=== PATIENT | male | born 1965 | race Two or more races ===

== ENCOUNTER 2023-05-27 11:17 | Emergency (ER) | payer MEDICAID ==
[~2023-05-27] VITALS: Ht 182.9 cm; Wt 69.7 kg
[2023-05-27] MEDS ORDERED: ACETAMINOPHEN 500 MG TAB PO ONE (12:45)
[2023-05-27 13:17] VITALS: RESP 18; O2SAT 99
[2023-05-27] MEDS ORDERED: SODIUM CHLORIDE 0.9% 500 ML IV ONE (13:45)
[2023-05-27 14:09] LABS: Basophils # (auto) 0 10 ^3/uL (0-0.2); Basophils % (auto) 0.4 % (0.0-2.0); Eosinophils # (auto) 0.1 10 ^3/uL (0-0.8); Eosinophils % (auto) 1.5 % (0.0-7.0); Hematocrit 45.2 % (41.0-53.0); Hemoglobin 15.3 g/dL (13.5-17.5); Lymphocytes # (auto) 0.4 10 ^3/uL (0.4-5.4); Lymphocytes % (auto) 10.3 % (10.0-50.0); Mean Corpuscular Hemoglobin 30.8 pg (28.0-32.0); Mean Corpuscular Hgb Conc. 33.8 g/dL (32.0-36.0); Mean Corpuscular Volume 91.1 fL (80.0-100.0); Monocytes # (auto) 0.6 10 ^3/uL (0-1.3); Monocytes % (auto) 16.3 % (0.0-12.0); Neutrophils # (auto) 2.6 10 ^3/uL (1.6-8.6); Neutrophils % (auto) 71.5 % (37.0-80.0); Red Blood Cells 4.96 10^6/uL (4.5-5.90); Red Cell Distribution Width 13.6 % (11.8-14.3); White Blood Cell 3.7 10^3/uL (4.4-10.8)
[2023-05-27 14:25] LABS: Rapid Influenza A Negative (Negative); Rapid Influenza B Negative (Negative)
[2023-05-27 14:26] LABS: COVID19 ANTIGEN SOFIA FIA NEGATIVE (NEGATIVE)
[2023-05-27 14:32] LABS: Alanine Aminotransferase 20 U/L (7-40); Albumin 4.7 g/dL (3.2-4.8); Alkaline Phosphatase 99 U/L (46-116); Anion Gap 9 (5-15); Aspartate Aminotransferase 18 U/L (13-40); BUN/Creatinine Ratio 11.5 (10.0-20.0); Blood Urea Nitrogen 12 mg/dL (9-23); Calcium 9.4 mg/dL (8.5-10.1); Carbon Dioxide 23 mmol/L (20-30); Chloride 105 mmol/L (98-107); Glucose 76 mg/dL (74-106); Potassium 3.8 mmol/L (3.5-5.1); Sodium 137 mmol/L (136-145)
[2023-05-27 14:33] LABS: Bilirubin, Total 0.4 mg/dL (0.2-1.0); Total Protein 7.5 g/dL (5.7-8.2)
[2023-05-27 15:09] VITALS: BP 113/70; PULSE 61; RESP 14; TEMP 97.3; O2SAT 97
[2023-05-27] MEDS ORDERED: AZIT-81 PO (15:13)
[2023-05-27] MEDS ORDERED: PROM1SOL4 PO (15:14)
== END 2023-05-27 15:14 | disposition home or self-care (01) ==
LOC: ER 11:17
DX: J06.9 Acute upper respiratory infection, unspecified (principal); F17.210 Nicotine dependence, cigarettes, uncomplicated; R07.89 Other chest pain; Z20.822 Contact with and (suspected) exposure to COVID-19
CPT/HCPCS: 36415; 71045; 80053; 83605; 85025; 87426; 87804; 99284; J7030

== ENCOUNTER 2023-07-03 19:03 | Emergency (ER) | payer MEDICAID ==
[~2023-07-03] VITALS: Ht 182.9 cm; Wt 77.2 kg
[~2023-07-03 19:03] MED LIST: AZIT-81 PO; PROM1SOL4 PO
[2023-07-03 19:27] VITALS: BP 101/62; PULSE 72; RESP 18; O2SAT 97
[2023-07-03 20:06] LABS: COVID19 ANTIGEN SOFIA FIA NEGATIVE (NEGATIVE)
[2023-07-03 20:07] LABS: Rapid Influenza A Negative (Negative); Rapid Influenza B Negative (Negative)
== END 2023-07-03 23:58 | disposition home or self-care (01) ==
LOC: ER 19:03
DX: R51.9 Headache, unspecified (principal); R09.81 Nasal congestion; Z53.21 Procedure and treatment not carried out due to patient leaving prior to being seen by health care provider; Z20.822 Contact with and (suspected) exposure to COVID-19
CPT/HCPCS: 36415; 87426; 87804

== ENCOUNTER 2025-02-27 00:28 | Emergency (ER) | payer MEDICAID, OTHER ==
[~2025-02-27] VITALS: Ht 182.9 cm; Wt 75.0 kg
[~2025-02-27 00:28] MED LIST changes: +AZIT-185 PO; -AZIT-81 PO
--- NOTE | 2025-02-27 01:32 | DVH ---
CLINICAL INDICATION: stepped on metal injury TECHNIQUE: 3-view XY L FOOT 3 VIEW XRAY Comparison: None FINDINGS: Oblique, mildly displaced fracture of the 5th metatarsal diaphysis. Overlying soft tissue swelling. No joint malalignment or other acute fracture. Mild chronic deformities of the 3rd and 4th middle pha lanxes, possibly developmental. Small mineralization in the 1st intermetatarsal space is likely vascu lar. IMPRESSION: 1. Oblique mildly displaced left 5th metatarsal fracture.
[2025-02-27] MEDS ORDERED: HYDROcodone-ACET 5/325MG TAB PO ONE (02:15)
--- NOTE | 2025-02-27 02:19 | ED.PDOC ---
Back pain HPI HPI Comments THIS IS A 59 MALE YEAR OLD PATIENT PRESENTS TO THE ED LEFT FOOT INJURY. PATIENT STATES AROUND 10 30 LAST NIGHT HE WAS AT WORK WALKING AND STEPPED ON A PIECE OF METAL INJURING HIS LEFT FOOT. PAIN 10/10 ON PAIN SCALE PRESSURE SHARP TYPE PAIN, DOES NOTE SOME MODERATE SWELLING AND TOP OF HIS FOOT. DENIES NUMBNESS, WEAKNESS, OR ANY OTHER KNOWN INJURY NOTES NO LACERATION OR ABRASIONS. Chief Complaint: Lower Extremity Time Seen by MD: 00:30 Reviewed Notes: Nurses Notes, Medications, Allergies Allergies: Coded Allergies: Penicillins (Verified Allergy, Unknown, 05/27/23) Home Meds Active Scripts Nabumetone (Nabumetone) 750 Mg Tab, 1 TAB PO BID PRN for 7 Days, #14 TAB Prov:EMILIA FLAHERTY 02/27/25 Promethazine-Dm (Promethazine Dm 6.25-15 mg/5Ml) 1 Clarissa Clarissa, 5 ML PO TIDP PRN for 10 Days, #150 ML 0 Refills Prov:PK ORTIZ NP 05/27/23 Azithromycin (ZITHROMAX TABLET) 250 Mg Tb, 250 MG PO DAILY for 5 Days, #6 TAB 0 Refills 2 tablets on the first day then 1 tablet daily for the next 4 days Prov:PK ORTIZ NP 05/27/23 Information Source: Patient Mode of Arrival: Ambulatory Past Medical History PAST MEDICAL HISTORY: Denies Surgical History: Denies all surgeries Family History Family History: Reviewed,noncontributory to illness Social History Smoker: Cigarettes Alcohol: Denies ETOH Use Drugs: Denies Drug Use All Other Systems: Reviewed and Negative (SEE HPI) Physical Exam General Appearance: No Apparent Distress, Normal HEENT: Pharynx Normal Neck: Full Range of Motion, Non-Tender Respiratory: Lungs Clear, No Respiratory Distress, Normal Breath Sounds Cardiovascular: No Murmur, Normal Peripheral Pulses, Regular Rate/Rhythm Breast Exam: Deferred Gastrointestinal: Non Tender, Soft Genitalia: Deferred Pelvic: Deferred Rectal: Deferred Extremities: Normal capillary refill, Normal range of motion, Pedal edema (+ 2 LEFT FOOT) Musculoskeletal : Location: Left Extremity Location: Foot (MODERATE EDEMA DORSAL ASPECT WITH TENDERNESS OVER 5TH METATARSAL STRENGTH SENSORY MOTION INTACT) Apperance: Normal Neurologic: Alert, No Motor Deficits, Normal Affect, Normal Mood, No Sensory Deficits Cerebellar Function: Normal Reflexes: Normal Skin: Dry, Normal Color, Warm Lymphatic: No Adenopathy Was a procedure done? Was a procedure done?: No Back Pain Differential Dx Differential Diagnosis: Fracture, Musculoskeletal Pain X-Ray, Labs, Meds, VS Vital Signs Date Time Temp Pulse Resp B/P (MAP) Pulse Ox O2 Delivery O2 Flow Rate FiO2 02/27/25 02:47 97.7 57 16 108/71 (83) 100 97.7 02/27/25 00:29 97.8 80 20 109/67 99 97.8 Current Medications Medications (Trade) Dose Ordered Sig/Carolee Route Start Time Stop Time Status Last Admin Ketorolac Tromethamine (Toradol Injection) 60 mg ONCE ONCE IM 02/27/25 02:15 02/27/25 02:16 DC 02/27/25 02:38 X-Ray, Labs, Meds, VS Comment FINDINGS: Oblique, mildly displaced fracture of the 5th metatarsal diaphysis. Overlying soft tissue swelling. No joint malalignment or other acute fracture. Mild chronic deformities of the 3rd and 4th middle phalanxes, possibly developmental. Small mineralization in the 1st intermetatarsal space is likely vascular. IMPRESSION: 1. Oblique mildly displaced left 5th metatarsal fracture. Patient Toradol 60 mg IM reports improvement in pain and function requesting discharge at this time. Patient placed in dorsal splint and crutches provided tolerated well positive CSM before and after. Script trial of anti-inflammatory advised to take medication as prescribed side effects discussed. Advised on rice. Advised no weight-bearing with use of crutches. Patient is employee paperwork filled out recommend light duty and to be cleared and seen by ortho prior to returning to full duty and removing splint. On ER return precautions patient indicates understanding and agrees with discharge plan of care. Time of 1ST Reevaluation: 00:30 Reevaluation 1ST: Unchanged Time of 2ND Reevaluation: 02:49 Reevaluation 2ND: Improved Patient Education/Counseling: Diagnosis, Treatment, Need For Follow Up Family Education/Counseling: No Family Present SEPSIS Sepsis Screen Date sepsis recognized/suspect: Feb 27, 2025 Time Sepsis recognized/suspect: 003 Recent Procedure: No On Antibiotic Therapy: No Respiratory Rate >20: No Heart Rate >90: No Temp<36 C (96.8 F) or >38.3 C: No SBP <90 or MAP <65 mmHG: No New Acute Mental Status Change: No Is the patient on CPAP, BIPAP,: No Physician Orders L Foot 3 View Xray (02/27/25 00:58) Splints (02/27/25 ) Crutches And Crutch Training (02/27/25 02:11) Vital Signs Date Time Temp Pulse Resp B/P (MAP) Pulse Ox O2 Delivery O2 Flow Rate FiO2 02/27/25 02:47 97.7 57 16 108/71 (83) 100 97.7 02/27/25 00:29 97.8 80 20 109/67 99 97.8 Medications Medications Dose Ordered Sig/Carolee Route Start Time Stop Time Status Last Admin Dose Admin Ketorolac Tromethamine 60 mg ONCE ONCE IM 02/27/25 02:15 02/27/25 02:16 DC 02/27/25 02:38 Departure 1 Departure Time of Disposition: 02:49 Impression: Primary Impression: Fracture of fifth metatarsal bone of left foot Qualified Codes: S92.352A - Displaced fracture of fifth metatarsal bone, left foot, initial encounter for closed fracture Disposition: 01 HOME / SELF CARE / HOMELESS Condition: Stable e-Prescriptions Nabumetone (Nabumetone) 750 Mg Tab 1 TAB PO BID PRN for 7 Days, #14 TAB Prov: EMILIA FLAHERTY 02/27/25 Discharged With: Self Critical Care Note Critical Care Time?: No Stability Stability form required: EMILIA Armas Feb 27, 2025 02:19
[2025-02-27] MEDS ORDERED: NABU-74 PO (02:36)
[2025-02-27] MEDS: KETOROLAC TROMETH 60MG/2ML VIAL IM ONE (02:38)
[2025-02-27 02:47] VITALS: BP 108/71; PULSE 57; RESP 16; TEMP 97.7; O2SAT 100
== END 2025-02-27 03:02 | disposition home or self-care (01) ==
LOC: ER 00:28
DX: S92.352A Displaced fracture of fifth metatarsal bone, left foot, initial encounter for closed fracture (principal); F17.210 Nicotine dependence, cigarettes, uncomplicated; Z88.0 Allergy status to penicillin; W22.8XXA Striking against or struck by other objects, initial encounter; Y93.01 Activity, walking, marching and hiking; Y92.89 Other specified places as the place of occurrence of the external cause; Y99.8 Other external cause status
CPT/HCPCS: 29515; 73630; 96372; 99283; J1885